=== PATIENT | female | born 2000 | race Caucasian/White ===

== ENCOUNTER 2019-09-15 01:14 | Emergency (ER) | payer OTHER ==
[~2019-09-15] VITALS: Ht 167.6 cm; Wt 70.2 kg
--- NOTE | 2019-09-15 01:40 | NUR ---
TECH ATTEMPTED MULTIPLE TIMES TO OBTAIN EKG IN TRIAGE. PT UNABLE TO SIT STILL S/T ANXIETY. HR 110-115 WHEN PT CALM. 130 WITH PT HYPERVENTILATING. PT INSTRUCTED IN SLOWER BREATHING. PT STATES "THIS HAPPENS WHEN I DRINK TOO MUCH." NO ACTIVE VOMITING NOTED. SUPERVISOR LAMP SHADES AWARE--NO ROOMS AVAILABLE. PT TO LOBBY IN W/C WITH FRIENDS.
[2019-09-15 02:56] LABS: BASOPHILS # (AUTO) 0.02 x10^3/uL (0-0.3); BASOPHILS % (AUTO) 0 % (0-1); EOSINOPHILS % (AUTO) 0 % (1-7); LYMPHOCYTES # (AUTO) 0.99 x10^3/uL (1-6.1); LYMPHOCYTES % (AUTO) 11 % (22-44); MD NO; MEAN CORPUSCULAR HEMOGLOBIN 25.8 pg (27.0-34.8); MEAN CORPUSCULAR HGB CONC 32.9 g/dL (32.4-35.8); MEAN CORPUSCULAR VOLUME 78.5 fL (80-100); MEAN PLATELET VOLUME 8.1 fL (7.4-10.4); MONOCYTES # (AUTO) 0.39 x10^3/uL (0-1.4); MONOCYTES % (AUTO) 4 % (2-9); NEUTROPHILS # (AUTO) 7.47 x10^3/uL (1.8-8.0); NEUTROPHILS % (AUTO) 84 % (42-75); PLATELET COUNT 329 x10^3/uL (130-400); RED BLOOD COUNT 4.53 x10^6/uL (3.82-5.3)
[2019-09-15] MEDS ORDERED: SODIUM CHLORIDE 0.9% 1,000ML IVBOLUS ONE (03:00)
[2019-09-15] MEDS ORDERED: ONDANSETRON 2MG/ML, 2ML IVPush ONE (03:00)
[2019-09-15 03:09] LABS: ALANINE AMINOTRANSFERASE 35 U/L (12-78); ALBUMIN 4.3 g/dL (3.4-5.0); ANION GAP 8 mmol/L (5-15); CALCIUM 8.5 mg/dL (8.5-10.1); CHLORIDE 115 mmol/L (98-107); CREATININE 0.77 mg/dL (0.55-1.02)
[2019-09-15 03:13] LABS: ALKALINE PHOSPHATASE 61 U/L (45-117); BILIRUBIN,TOTAL 0.2 mg/dL (0.2-1.0); TOTAL PROTEIN 7.9 g/dL (6.4-8.2)
[2019-09-15] MEDS ORDERED: ONDANSETRON ODT 4 MG ONE (03:31)
--- NOTE | 2019-09-15 03:40 | NUR ---
Pt called into triage for repeat VS and reattempt at EKG. Pt more calm at this time. Small amount of vomit noted while in triage. No blood noted. Friend states earlier tonight, pt fell back and hit her head as well. No LOC. C/O mild WILSON and L elbow pain. Pt A&Ox4. [employer] Man equal. enterprise solutions architect notified and pt to go to rm 19. Provider aware.
--- NOTE | 2019-09-15 03:44 | NUR ---
pt to room from lobby
[2019-09-15] MEDS ORDERED: ONDANSETRON 2MG/ML, 2ML ONE (03:56)
[2019-09-15] MEDS ORDERED: ONDANSETRON ODT 4 MG PO ONE (04:00)
[2019-09-15] MEDS ORDERED: PANTOPRAZOLE 40 MG IV IVPush ONE (04:00)
[2019-09-15] MEDS ORDERED: PANTOPRAZOLE 40 MG IV ONE (04:25)
--- NOTE | 2019-09-15 04:30 | NUR ---
PT RESTING COMFORTABLY. MONITOR IN PLACE. FRIEND AT BEDSIDE.
--- NOTE | 2019-09-15 05:21 | NUR ---
PT TO BR SBA TO FOR UA.
[2019-09-15 05:37] LABS: MICROSCOPIC NOT IND
[2019-09-15 05:40] LABS: CULTURE INDICATED? NO
[2019-09-15 06:00] VITALS: BP 115/80
== END 2019-09-15 06:02 | disposition home or self-care (01) ==
LOC: ED 05:48
DX: S06.0X0A Concussion without loss of consciousness, initial encounter (principal); K29.20 Alcoholic gastritis without bleeding; F10.120 Alcohol abuse with intoxication, uncomplicated; G89.11 Acute pain due to trauma; M25.522 Pain in left elbow; R11.10 Vomiting, unspecified; R94.31 Abnormal electrocardiogram [ECG] [EKG]; Y90.0 Blood alcohol level of less than 20 mg/100 ml; X58.XXXA Exposure to other specified factors, initial encounter; Y93.89 Activity, other specified; Y92.89 Other specified places as the place of occurrence of the external cause; Y99.8 Other external cause status
CPT/HCPCS: 36415; 70450; 71045; 73080; 80053; 80307; 81003; 83690; 84703; 85025; 93005; 96361; 96374; 96375; 99285; C9113; J2405; J7030